=== PATIENT | female | born 2000 | race African-American/Black ===

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

== ENCOUNTER 2022-02-11 15:59 | Emergency (ER) | payer OTHER ==
[2022-02-11 16:05] VITALS: BP 105/63; PULSE 93; TEMP 97.9; BMI 19.7
[2022-02-11 17:29] LABS: EPI CELLS 32 /uL (0-25.1); HCG,QUALITATIVE URINE Negative; HYALINE CASTS 3 /uL (0-3.1); PH,URINE 5.5 (5.0-8.0); URINE APPEARANCE CLEAR; URINE BACTERIA 147 /uL (0-1359); URINE BILIRUBIN NEGATIVE (NEGATIVE); URINE COLOR DK YELLOW; URINE GLUCOSE (UA) NEGATIVE (NEGATIVE); URINE KETONE TRACE (NEGATIVE); URINE LEUK ESTERASE 1+ (NEGATIVE); URINE NITRITE NEGATIVE (NEGATIVE); URINE PROTEIN 1+ (NEGATIVE); URINE RBC 5 /uL (0-23.9); URINE WBC 26 /uL (0-25.8)
[2022-02-11 18:26] LABS: SYPHILIS W/ RPR CONF NON-REACTIVE (NONREACTIVE)
[2022-02-11 18:55] LABS: HIV INTERPRETATION NEGATIVE (NEGATIVE)
== END 2022-02-11 17:42 | disposition home or self-care (01) ==
LOC: JERFT 15:59 → JER 15:59 → JERFT 17:42
DX: A60.04 Herpesviral vulvovaginitis (principal)
CPT/HCPCS: 36415; 81003; 84703; 86695; 86696; 86780; 87070; 87077; 87086; 87205; 87389; 87491; 87591; 99283-25

== ENCOUNTER 2022-03-02 11:09 | Emergency (ER) | payer OTHER ==
[2022-03-02 11:23] VITALS: BP 100/65; PULSE 76; TEMP 98.3; BMI 19.4
== END 2022-03-02 12:35 | disposition home or self-care (01) ==
LOC: JERFT 11:09
DX: R21 Rash and other nonspecific skin eruption (principal)
CPT/HCPCS: 99281-25

== ENCOUNTER 2023-01-24 19:20 | Emergency (ER) | payer OTHER ==
[2023-01-24 19:32] VITALS: BP 104/64; PULSE 89; RESP 19; BMI 19.7
[2023-01-24] MEDS ORDERED: ACETAMINOPHEN 500 MG TABLET (FP) PO ONE (20:44)
[2023-01-24] MEDS ORDERED: IBUPROFEN 400 MG TABLET (FP) PO ONE ×2 (20:44→20:53)
[2023-01-24] MEDS ORDERED: ACETAMINOPHEN 500 MG TABLET (FP) ONE (20:53)
[2023-01-24] MEDS ORDERED: ONDANSETRON 4 MG TABLET PO ONE ×2 (22:03→22:05)
[2023-01-24 22:10] VITALS: TEMP 98.9
== END 2023-01-24 22:27 | disposition home or self-care (01) ==
LOC: JER 19:20 → JERFT 19:20
DX: R51.9 Headache, unspecified (principal); J06.9 Acute upper respiratory infection, unspecified
CPT/HCPCS: 0241U-QW; 99283-25

== ENCOUNTER 2023-03-14 15:14 | Emergency (ER) | payer OTHER ==
[2023-03-14 15:27] VITALS: BP 111/62; PULSE 64; RESP 16; TEMP 98.2; BMI 19.7
[2023-03-14] MEDS ORDERED: ACETAMINOPHEN 325 MG TABLET (FP) PO ONE (15:45)
[2023-03-14] MEDS ORDERED: ACETAMINOPHEN 325 MG TABLET (FP) ONE (15:47)
== END 2023-03-14 17:11 | disposition home or self-care (01) ==
LOC: JERFT 15:14
DX: M79.672 Pain in left foot (principal)
CPT/HCPCS: 73630-TC-LT; 99283-25

== ENCOUNTER 2023-10-14 18:13 | Emergency (ER) | payer OTHER ==
[2023-10-14 18:33] VITALS: BP 110/60; PULSE 82; RESP 18; TEMP 98.5; BMI 20.1
[2023-10-14] MEDS ORDERED: predniSONE 20 MG TABLET (UD) PO ONE (20:32)
[2023-10-14] MEDS ORDERED: predniSONE 20 MG TABLET (UD) ONE (20:46)
== END 2023-10-14 20:50 | disposition home or self-care (01) ==
LOC: JERFT 18:13 → JER 18:13 → JERFT 20:50
DX: R22.0 Localized swelling, mass and lump, head (principal); T78.02XA Anaphylactic reaction due to shellfish (crustaceans), initial encounter
CPT/HCPCS: 84703; 99283-25